=== PATIENT | female | born 1960 | race Caucasian/White ===

== ENCOUNTER 2021-02-24 03:58 | Inpatient (IN) | payer BC ==
[~2021-02-24] VITALS: Ht 160 cm; Wt 121.2 kg
--- NOTE | ~2021-02-24 | OP ---
[facility] [address] [place] [address] OPERATIVE REPORT Name: CARMEN PENNINGTON Room: [address] IN [facility].R[facility]#: [id number] Admission: 02/24/21 Attend Phys: Shante Felder MD Discharge: Date of : 60 Report #: [id number] THIS REPORT FOR: cc: FAM - No family physician/PCP FAM - No family physician/PCP Sebastián Thomson MD ~ DATE OF SURGERY: 02/24/2021 PREOPERATIVE DIAGNOSIS: Acute perforated appendicitis. POSTOPERATIVE DIAGNOSIS: Acute perforated appendicitis. OPERATION: Diagnostic laparoscopy with drainage of appendiceal phlegmon. SURGEON: Sebastián Thomson MD ANESTHESIA: General. ESTIMATED BLOOD LOSS: Minimal. SPECIMENS: None. DESCRIPTION OF PROCEDURE: After informed consent was obtained, the patient was brought to the operating room and placed supine. SCDs were placed and working, preoperative antibiotics were administered, general anesthesia was induced. The abdomen was prepped and draped in the usual sterile fashion. A 5 mm incision was made in the left upper quadrant. A 5 mm trocar was placed under direct vision. Pneumoperitoneum was established. A left lower quadrant, a 5 mm trocar was placed. A right upper quadrant 10 mm trocar was placed. I began by examining the right lower quadrant. The patient was placed in a slight left side down position. I was able to visualize the cecum. I was able to visualize the terminal ileum. In this area I could see the base of the appendix, but this went into a phlegmon in the right lower quadrant at the pelvic side wall. I attempted to dissect in this area, but this was a very hard and I did not want to risk any injury to the other small bowel. I therefore elected to drain this phlegmon. I placed a 15-Vietnamese drain into the phlegmon. This was done through a port in the right lower quadrant. The ports were then removed under direct vision. Fascia at the right upper quadrant was closed with a [id number] 0 Vicryl. Skin was closed with 4-0 Monocryl. Incisions were dressed with Steri-Strips. COMPLICATIONS: [place] [address] OPERATIVE REPORT Name: CARMEN PENNINGTON Room: [address] IN [facility]#: [id number] Admission: 02/24/21 Attend Phys: Shante Felder MD Discharge: Date of : 60 Report #: [id number] DISPOSITION: The patient was taken to recovery in satisfactory condition. By: [id number] Thomson MD /nt
[2021-02-24 04:02] VITALS: BP 188/65
[2021-02-24] MEDS ORDERED: NEXIUM 24HR20 M2 PO (04:07)
[2021-02-24] MEDS ORDERED: SINGULAIR 10 MG10 MG PO (04:07)
[2021-02-24] MEDS ORDERED: CLARITIN10 M2 PO (04:07)
[2021-02-24] MEDS ORDERED: MELOXICAM7.5 MG PO (04:08)
[2021-02-24 04:34] LABS: URINE BILIRUBIN NEGATIVE (Negative); URINE BLOOD NEGATIVE (Negative); URINE CLARITY CLEAR; URINE COLOR YELLOW; URINE GLUCOSE-RANDOM NEGATIVE (Negative); URINE KETONES NEGATIVE (Negative); URINE LEUKOCYTES-REFLEX NEGATIVE (Negative); URINE NITRITE-REFLEX NEGATIVE (Negative); URINE PROTEIN NEGATIVE (Negative); URINE UROBILINOGEN 0.2 E.U./dl (0.2-1.0)
[2021-02-24 04:35] LABS: ABSOLUTE BASOPHILS 0.1 thou/uL (0.0-0.2); ABSOLUTE EOSINOPHILS 0.1 thou/uL (0.0-0.7); ABSOLUTE LYMPHOCYTES 1.8 thou/uL (0.8-5.3); ABSOLUTE NEUTROPHILS 7.6 thou/uL (1.6-8.1); BASOPHILS 1.1 %; EOSINOPHILS 1.4 %; HEMATOCRIT 40.1 % (37.0-47.0); HEMOGLOBIN 13.4 gm/dL (12.0-15.0); LYMPHOCYTES 16.9 %; MCH 30.8 pg (26.0-34.0); MCHC 33.5 g/dL (28.0-37.0); MONOCYTES 9.1 %; NUCLEATED RBCS 0 /100WBC; PLATELET COUNT* 326 thou/uL (150-400); POLYS 71.5 %; RBC 4.36 mil/uL (4.20-5.00); RDW-CV 12.7 % (10.5-14.5); WBC 10.7 thou/uL (4.0-11.0)
[2021-02-24 04:48] LABS: CALCIUM 9.1 mg/dL (8.5-10.1); CREATININE 1.2 mg/dL (0.6-1.3); POTASSIUM 3.9 mmol/L (3.5-5.1)
[2021-02-24 04:53] LABS: ALBUMIN 3.4 g/dL (3.4-5.0); TOTAL BILIRUBIN 0.6 mg/dL (<0.1-1.0); TOTAL PROTEIN 7.7 g/dL (6.4-8.2)
[2021-02-24 09:27] VITALS: BP 155/68
--- NOTE | 2021-02-24 09:59 | EKG ---
[place] [address] ELECTROCARDIOGRAM REPORT Name: CARMEN PENNINGTON Room: [place] [address] ADM IN [facility]#: [id number] Admission: 02/24/21 Attend Phys: Shante Felder, Discharge: Date of : 60 Date of Service: 02/24/21 0747 Report #: [id number] THIS REPORT FOR: //name// [facility] ED Test Date: 2021-02-24 Test Time: 07:47:16 Pat Name: CARMEN PENNINGTON Department: Room: [facility] Gender: F Advocacy Director: TARA : 1960 Requested By: Flo Marx Order Number: [id number] MD: Cuba Deluna Measurements Intervals [place] Rate: 72 P: 82 TN: 166 QRS: 71 QRSD: 96 T: 58 QT: 368 QTc: 403 Interpretive Statements Sinus rhythm Baseline wander in lead(s) V4 No previous ECG available for comparison Electronically Signed On 02-24-2021 9:58:52 CDT by Cuba Deluna [email or web address] <ELECTRONICALLY SIGNED> By: Cuba Deluna MD, [facility] 02/24/21 0958 0747 0747 Cuba Deluna MD, [facility] /EPI
[2021-02-24] MEDS ORDERED: FLEXERIL PO (15:46)
[2021-02-24] MEDS ORDERED: ALBUTEROL2.5 MG/31 INH (15:47)
[2021-02-24] MEDS ORDERED: PROAIR HFA8.5 GM INH (15:47)
[2021-02-24] MEDS ORDERED: DAILY VALUE1 EAC1 PO (15:48)
[2021-02-24] MEDS ORDERED: CALCIUM CARBON400 MG PO (15:50)
[2021-02-24 16:40] VITALS: BP 139/67
--- NOTE | 2021-02-24 16:59 | NUR ---
RECIEVED REPORT FORM OTILIA RN IN PCU OF EXPECTED ADMIT AT 1528- DX: RUPTURED APPENDICITIS- PT ARRIVEED TO ROOM 202 VIA BED AT 1540- PT A&O X4- CONT OF B/B- SBA WITH TRANSFERS FOR SAFETY- EXPIRATORY WHEEZES NOTED WITH OCCASSIONAL DRY NON-PRODUCTIVE COUGH R/T BEING SMOKER- VSS, O2 SAT 94% ON RA- ABD OBESE/TENDER, BS ACITIVE- 4 ABD LAP SITES NOTED WELL APPROXIMATED WITH STERI STRIPS IN PLACE-LEFT LQ J-P DRAIN NOTED WITH SERIOUS- SANGIOUS DRAINAGE- 1+ BLE EDEMA NOTED- RIGHT AV IV NOTED C/D/I, IVF STARTED AND INFUSSING PER ORDERS AT TIME OF ADMISSION- PRN HYDROCODONE GIVEN R/T PAIN- CALL LIGHT AND PERSONAL BELONGINGS WITH IN REACH- PT MAKES NEEDS KNOWN- ALL NEEDS MET AT THIS TIME
[2021-02-24 20:30] VITALS: BP 125/57
[2021-02-25 00:27] VITALS: BP 144/60
[2021-02-25 02:06] LABS: GLYCOHEMOGLOBIN (HGB A1C) 5.8 % (4.8-5.6)
[2021-02-25 04:27] LABS: HEMATOCRIT 36.7 % (37.0-47.0); HEMOGLOBIN 11.9 gm/dL (12.0-15.0); MCH 30.2 pg (26.0-34.0); MCHC 32.5 g/dL (28.0-37.0); MPV 8.4 fl. (7.2-11.1); RBC 3.94 mil/uL (4.20-5.00); RDW-CV 12.6 % (10.5-14.5); WBC 10.9 thou/uL (4.0-11.0)
--- NOTE | 2021-02-25 04:38 | NUR ---
PT CAN GET UP TO RESTROOM WELL, TRYING TO URINATE FREQUENTLY, RECEIVED ALL MEDS AND ABX SCHEDULED. NORCO FOR PAIN AT BEDTIME, ROOM AIR, ALERT AND ORIENTED. JOSE ALEJANDRO DRAIN FUNCTIONING WELL, OUTPUT MODERATE.
[2021-02-25 05:01] LABS: ALBUMIN 2.6 g/dL (3.4-5.0); CALCIUM 8.5 mg/dL (8.5-10.1); CREATININE 1.1 mg/dL (0.6-1.3); MAGNESIUM 2.1 mg/dL (1.8-2.4); POTASSIUM 4.7 mmol/L (3.5-5.1); TOTAL BILIRUBIN 0.3 mg/dL (<0.1-1.0); TOTAL PROTEIN 6.4 g/dL (6.4-8.2)
[2021-02-25 07:39] VITALS: BP 127/52
--- NOTE | 2021-02-25 09:03 | NUR ---
ASSUMED CARE OF PT THIS AM AROUND 0715- M/S STATUS NOTED- A&O X4- CONT OF B/B- UP AD-MARYBETH IN ROOM, STEADY GAIT NOTED- EXPIRATORY WHEEZES NOTED WITH DRY NON-PRODUCTIVE COUGH- VSS, O2 SAT 91% ON RA- ABD SOFT/OBESE/TENDER, BS HYPOACTIVE- LAST BM X3 DAYS AGO- LAP MIGUE INCISSION SITES WELL APPROXIMATED WITH STERI STRIPS IN PLACE- RLQ JOSE ALEJANDRO DRAIN INTACT WITH NOTED SERIOUS SANGIOUS DRAINAG NOTED- 1+ BLE EDEMA- IV NOTED TO RIGHT AC INTACT AND SL, IVF NOTED TO BE D/C'D THIS AM- PAIN REPORTED 4/10 TO ABD, DARK/QUIET ENVIRONMENT IN PLACE- CALL LIGHT AND PERSONAL BELONGINGS WITH IN REACH- PT MAKES NEEDS KNOWN- ALL NEEDS MET AT THIS TIME
[2021-02-25] MEDS ORDERED: LEVOFLOXACIN500 MG PO (10:34)
[2021-02-25] MEDS ORDERED: HYDROCODON-ACE1 EAC7 PO (10:34)
[2021-02-25] MEDS ORDERED: FLAGYL500 M1 PO (10:34)
[2021-02-25 14:05] VITALS: BP 127/52
[2021-02-25 15:07] VITALS: BP 109/52
[2021-02-25 18:20] VITALS: BP 127/52
== END 2021-02-25 18:20 | disposition home or self-care (01) | DRG 339 ==
LOC: M.ERS 03:58 → M.TBA-ER 08:02 → M.2W 15:38
PROVIDERS: Emergency Medicine; ADMIT Internal Medicine; ATTEND Internal Medicine
DX: K35.33 Acute appendicitis with perforation, localized peritonitis, and gangrene, with abscess (principal); N13.30 Unspecified hydronephrosis; J44.9 Chronic obstructive pulmonary disease, unspecified; F17.210 Nicotine dependence, cigarettes, uncomplicated; R91.1 Solitary pulmonary nodule; R73.9 Hyperglycemia, unspecified; Z20.822 Contact with and (suspected) exposure to COVID-19; K21.9 Gastro-esophageal reflux disease without esophagitis; Z79.899 Other long term (current) drug therapy; Z90.710 Acquired absence of both cervix and uterus; Z88.8 Allergy status to other drugs, medicaments and biological substances; Z91.030 Bee allergy status